=== PATIENT | female | born 1970 | race Caucasian/White ===

== ENCOUNTER 2016-07-10 23:44 | Inpatient (IN) | payer BC ==
[~2016-07-10] VITALS: Ht 167.6 cm; Wt 86.6 kg
[~2016-07-10 23:44] MED LIST: HYDR-548 PO
[2016-07-10] MEDS ORDERED: ASPIRIN 81 MG TAB.CHEW ONE (23:56)
[2016-07-11] MEDS ORDERED: MORPHINE SULFATE INJ 4 MG/ML DISP.SYRIN ONE
[2016-07-11] MEDS ORDERED: ASPIRIN 81 MG TAB.CHEW PO ONE
[2016-07-11] MEDS ORDERED: ONDANSETRON HCL/PF 4 MG/2 ML VIAL ONE (00:01)
[2016-07-11] MEDS ORDERED: IV NS 0.9% 1,000 ML ONE (00:04)
[2016-07-11] MEDS ORDERED: IV SET PRIMARY 1 EA INFUS.SET MC ONE (00:04)
[2016-07-11 00:09] LABS: BASOPHILS % (AUTO) 0.4 % (0.0-2.0); DIFF TOTAL % 100 %; EOSINOPHILS # (AUTO) 0.1 /CMM (0.0-0.7); EOSINOPHILS % (AUTO) 1.3 % (0.0-6.0); HEMATOCRIT 40 % (33-45); HEMOGLOBIN 13.1 g/dL (11.5-14.8); LYMPHOCYTES # (AUTO) 1.4 /CMM (0.8-4.8); LYMPHOCYTES % (AUTO) 31.9 % (20.0-44.0); MEAN CORPUSCULAR HEMOGLOBIN 28 PG (26.0-33.0); MEAN CORPUSCULAR HGB CONC 33 g/dl (31.0-36.0); MEAN CORPUSCULAR VOLUME 85 fL (82-100); MONOCYTES # (AUTO) 0.3 /CMM (0.1-1.30); MONOCYTES % (AUTO) 7.2 % (2.0-12.0); NEUTROPHILS # (AUTO) 2.6 /CMM (1.8-8.9); NEUTROPHILS % (AUTO) 59.2 % (43.0-81.0); PLATELET COUNT (AUTO) 250 /CMM (150-450); RED BLOOD CELL COUNT(AUTO) 4.67 MIL/uL (4.0-5.2); WHITE BLOOD COUNT (AUTO) 4.4 K/uL (4.3-11.0)
[2016-07-11 00:18] LABS: ANION GAP 14 (5-14); CARBON DIOXIDE 26 mmol/L (21-32); CHLORIDE 105 mmol/L (98-107); CREATININE 0.7 mg/dL (0.6-1.3); GFR 90 mL/min (>60); GLUCOSE 112 mg/dL (74-106); POTASSIUM 4.1 mmol/L (3.5-5.1); SODIUM SERUM 141 mmol/L (136-145); UREA NITROGEN, BLOOD 12 mg/dL (7-18)
[2016-07-11] MEDS ORDERED: IV NS 0.9% 250 ML IV ONE (00:22)
[2016-07-11] MEDS ORDERED: IOHEXOL-350 100 ML VIAL IV ONE (00:22)
[2016-07-11 00:24] LABS: ALBUMIN 3.6 g/dL (3.4-5.0); BILIRUBIN,DIRECT 0.1 mg/dL (0.0-0.2); BILIRUBIN,TOTAL 0.3 mg/dL (0.2-1.0); INDIRECT BILIRUBIN 0.2 mg/dL (0.0-1.1); TOTAL PROTEIN, SERUM 7.7 g/dL (6.4-8.2)
[2016-07-11 00:25] LABS: INR 0.9 (0.87-1.13); PROTHROMBIN TIME 9.7 SECS (9.5-12.7)
[2016-07-11 00:28] LABS: TROPONIN I < 0.017 ng/mL (0.00-0.056)
[2016-07-11] MEDS ORDERED: ONDANSETRON HCL/PF 4 MG/2 ML VIAL IV ONE (00:30)
[2016-07-11] MEDS ORDERED: IV NS 0.9% 1,000 ML BAG IV ONE (00:30)
[2016-07-11] MEDS ORDERED: MORPHINE SULFATE INJ 2 MG/ML DISP.SYRIN IV ONE (00:30)
[2016-07-11] MEDS ORDERED: FAMOTIDINE/PF INJ 20 MG/2 ML VIAL IV ONE ×2 (01:28→02:00)
[2016-07-11] MEDS ORDERED: METOCLOPRAMIDE HCL 10 MG/2 ML VIAL ONE (01:28)
[2016-07-11] MEDS ORDERED: METOCLOPRAMIDE HCL 10 MG/2 ML VIAL IV ONE (02:00)
[2016-07-11] MEDS ORDERED: CARVEDILOL 3.125 MG TABLET PO ONE (02:30)
[2016-07-11] MEDS ORDERED: NITROGLYCERIN 0.4 MG/TAB BOTTLE SL PRN (02:30)
[2016-07-11] MEDS ORDERED: HYDROCODONE/APAP 10/325MG 1 EA TABLET PO PRN (02:30)
[2016-07-11] MEDS ORDERED: MORPHINE SULFATE INJ 2 MG/ML DISP.SYRIN IV PRN ×2 (02:30)
[2016-07-11] MEDS ORDERED: ENOXAPARIN SODIUM 40 MG/0.4 ML DISP.SYRIN SQ SCH (02:30)
[2016-07-11 03:00] VITALS: BP 108/71
[2016-07-11 03:30] VITALS: BP 108/71
[2016-07-11] MEDS ORDERED: CARVEDILOL 3.125 MG TABLET ONE (03:36)
[2016-07-11 07:32] VITALS: BP 118/64
[2016-07-11] MEDS ORDERED: CLOPIDOGREL BISULFATE 75 MG TABLET PO SCH (09:00)
[2016-07-11] MEDS ORDERED: ASPIRIN 81 MG TAB.CHEW PO SCH (09:00)
[2016-07-11] MEDS ORDERED: NAPR500T PO (09:13)
[2016-07-11] MEDS ORDERED: SIMVASTATIN 20 MG TABLET PO SCH (22:00)
== END 2016-07-11 10:20 | disposition home or self-care (01) | DRG 203 ==
LOC: ER 23:47 → TELE 07-11 02:24 → MED 07-11 10:18
PROVIDERS: ADMIT Internal Medicine; ATTEND Internal Medicine
DX: M94.0 Chondrocostal junction syndrome [Tietze] (principal); Z85.3 Personal history of malignant neoplasm of breast; Z87.891 Personal history of nicotine dependence; Z90.12 Acquired absence of left breast and nipple; Z92.21 Personal history of antineoplastic chemotherapy; Z90.49 Acquired absence of other specified parts of digestive tract
CPT/HCPCS: 36415; 71010-TC; 80048-TC; 80076-TC; 83690-TC; 84484-TC; 85025-TC; 85610-TC; 87081-TC; A4606; J2270; J2405; J2765; J3490; J7030; J7050; Q9967; Z7610

== ENCOUNTER 2017-01-02 13:37 | Emergency (ER) | payer MEDICAID ==
[~2017-01-02] VITALS: Ht 167.6 cm; Wt 68.0 kg
[~2017-01-02 13:37] MED LIST changes: +NAPR500T PO
--- NOTE | 2017-01-02 13:58 | NUR ---
PRESENTS SELF TO ED FOR VAGIANL BLEEDING X 2 DAYS. PATIENT ALSO REPORTED SHARP PAIN ON LOWER ABDOMEN, 7/10. PATIENT DENIES NAUSEA AND VOMITTING,. SKIN IS WARM TO TOUCH AND NON DIAPHORETIC. PATIENT IS AFEBRILE. VSS
--- NOTE | 2017-01-02 14:00 | NUR ---
iv line started blood drawn and sent to lab.
--- NOTE | 2017-01-02 14:20 | NUR ---
dr reeves at bedside for eval.
[2017-01-02] MEDS ORDERED: ONDANSETRON HCL/PF 4 MG/2 ML VIAL ONE (14:29)
[2017-01-02] MEDS ORDERED: IV NS 0.9% 1,000 ML BAG IV ONE (14:30)
[2017-01-02] MEDS ORDERED: ONDANSETRON HCL/PF - ER 4 MG/2 ML VIAL IV ONE (14:30)
[2017-01-02] MEDS ORDERED: MORPHINE SULFATE INJ 2 MG/ML DISP.SYRIN IV ONE (14:30)
[2017-01-02] MEDS ORDERED: MORPHINE SULFATE INJ 4 MG/ML DISP.SYRIN ONE (14:30)
[2017-01-02 14:54] LABS: BASOPHILS % (AUTO) 0.4 % (0.0-2.0); EOSINOPHILS % (AUTO) 0.3 % (0.0-6.0); HEMATOCRIT 39 % (33-45); HEMOGLOBIN 13.2 g/dL (11.5-14.8); LYMPHOCYTES # (AUTO) 1.9 /CMM (0.8-4.8); LYMPHOCYTES % (AUTO) 31.9 % (20.0-44.0); MEAN CORPUSCULAR HEMOGLOBIN 29 PG (26.0-33.0); MEAN CORPUSCULAR HGB CONC 34 g/dl (31.0-36.0); MEAN CORPUSCULAR VOLUME 87 fL (82-100); MONOCYTES # (AUTO) 0.3 /CMM (0.1-1.30); MONOCYTES % (AUTO) 4.4 % (2.0-12.0); NEUTROPHILS # (AUTO) 3.8 /CMM (1.8-8.9); PLATELET COUNT (AUTO) 234 /CMM (150-450); RDW COEFFICIENT OF VARIATION 12.7 (11.5-15.0); RED BLOOD CELL COUNT(AUTO) 4.52 MIL/uL (4.0-5.2)
[2017-01-02 15:18] LABS: INR 0.94 (0.87-1.13)
[2017-01-02 15:21] LABS: CALCIUM, SERUM 8.8 mg/dL (8.5-10.1); CREATININE 0.7 mg/dL (0.6-1.3); POTASSIUM 3.2 mmol/L (3.5-5.1)
[2017-01-02 15:34] LABS: ALBUMIN 3.9 g/dL (3.4-5.0); BILIRUBIN,TOTAL 0.5 mg/dL (0.2-1.0); TOTAL PROTEIN, SERUM 7.8 g/dL (6.4-8.2)
--- NOTE | 2017-01-02 15:55 | NUR ---
U/S TECH AT BEDSIDE FOR PELVIC ULTRASOUND.
[2017-01-02 16:37] LABS: APPEARANCE,URINE Slightly Cloudy (CLEAR); BILIRUBIN,URINE SMALL (NEGATIVE); BLOOD, URINE Large Ery/uL (NEGATIVE); COLOR,URINE Yellow (YELLOW); KETONES,URINE Negative (NEGATIVE); LEUKOCYTE ESTERASE ,URINE Negative (NEGATIVE); NITRITE, URINE Negative (NEGATIVE); PH,URINE 5.5 (5.0-8.0); PROTEIN,URINE Negative (NEGATIVE); UGLUCOSE Negative (NEGATIVE); UROBILINOGEN,URINE 0.2 EU/dL (0.2)
[2017-01-02 16:51] LABS: BACTERIA,URINE Rare /HPF (None Seen); SQUAMOUS EPITHELIAL CELL,UR Few /HPF (None Seen); WBC,URINE 0-2 /HPF (0-3)
[2017-01-02 17:15] VITALS: BP 128/74
--- NOTE | 2017-01-02 17:15 | NUR ---
Patient discharged to home in stable condition. Written and verbal after care instructions given. Patient verbalizes understanding of instruction.IV removed. Catheter intact and site benign. Pressure and 4x4 applied to site. No bleeding noted.
== END 2017-01-02 17:16 | disposition home or self-care (01) ==
LOC: ER 13:43
DX: N93.9 Abnormal uterine and vaginal bleeding, unspecified (principal); Z98.890 Other specified postprocedural states; F17.200 Nicotine dependence, unspecified, uncomplicated
CPT/HCPCS: 36415; 76856-TC; 80053-TC; 81000-TC; 84702-TC; 85025-TC; 85610-TC; 85730-TC; A4606; J2270; J2405; J7030; Z7610

== ENCOUNTER 2018-07-04 20:20 | Emergency (ER) | payer MEDICAID ==
[~2018-07-04] VITALS: Ht 167.6 cm; Wt 80.7 kg
[~2018-07-04 20:20] MED LIST changes: +HYDR-4354 PO; -HYDR-548 PO; +NAPR-1164 PO; -NAPR500T PO
--- NOTE | 2018-07-04 20:34 | NUR ---
PT PRESENTED TO THE ER WITH A C/O L SIDED CP THAT RADIATES TO THE BACK. PT IS ALSO C/O EPIGASTRIC PAIN AND URINARY FREQUENCY. PT IS ON THE MONITOR AND CONITNUOUS PULSE OX.
[2018-07-04 20:56] LABS: BASOPHILS % (AUTO) 0.5 % (0.0-2.0); EOSINOPHILS % (AUTO) 0.8 % (0.0-6.0); HEMATOCRIT 37 % (33-45); HEMOGLOBIN 12.7 g/dL (11.5-14.8); LYMPHOCYTES # (AUTO) 2.4 /CMM (0.8-4.8); LYMPHOCYTES % (AUTO) 40.4 % (20.0-44.0); MEAN CORPUSCULAR HGB CONC 34 g/dl (31.0-36.0); MEAN CORPUSCULAR VOLUME 88 fL (82-100); MONOCYTES # (AUTO) 0.4 /CMM (0.1-1.30); MONOCYTES % (AUTO) 6.2 % (2.0-12.0); NEUTROPHILS # (AUTO) 3.1 /CMM (1.8-8.9); NEUTROPHILS % (AUTO) 52.1 % (43.0-81.0); PLATELET COUNT (AUTO) 230 /CMM (150-450); RED BLOOD CELL COUNT(AUTO) 4.26 MIL/uL (4.0-5.2); WHITE BLOOD COUNT (AUTO) 5.9 K/uL (4.3-11.0)
--- NOTE | 2018-07-04 21:05 | NUR ---
PT APPEARS TO BE RESTING COMFORTABLY WITH NO S/S OF PAIN OR DISTRESS.
[2018-07-04 21:09] LABS: APPEARANCE,URINE Clear (CLEAR); BILIRUBIN,URINE Negative (NEGATIVE); BLOOD, URINE Negative Ery/uL (NEGATIVE); COLOR,URINE Yellow (YELLOW); KETONES,URINE 15 (NEGATIVE); LEUKOCYTE ESTERASE ,URINE Negative (NEGATIVE); NITRITE, URINE Negative (NEGATIVE); PROTEIN,URINE Negative (NEGATIVE); UGLUCOSE Negative (NEGATIVE); UROBILINOGEN,URINE 0.2 EU/dL (0.2)
[2018-07-04 21:12] LABS: CALCIUM, SERUM 9.4 mg/dL (8.5-10.1); CARBON DIOXIDE 25 mmol/L (21-32); CHLORIDE 106 mmol/L (98-107); CREATININE 0.8 mg/dL (0.6-1.3); GLUCOSE 118 mg/dL (74-106); POTASSIUM 3.5 mmol/L (3.5-5.1); SODIUM SERUM 141 mmol/L (136-145); UREA NITROGEN, BLOOD 13 mg/dL (7-18)
[2018-07-04 21:22] LABS: BACTERIA,URINE None seen /HPF (None Seen); RBC,URINE 0-2 /HPF (0-2); SQUAMOUS EPITHELIAL CELL,UR Few /HPF (None Seen); WBC,URINE 0-2 /HPF (0-3)
[2018-07-04] MEDS ORDERED: ACETAMINOPHEN ES 500 MG TABLET ONE (21:46)
--- NOTE | 2018-07-04 21:56 | NUR ---
Patient discharged to home in stable condition. Written and verbal after care instructions given. Patient verbalizes understanding of instruction. PT REC'D A COPY OF ALL LABS, IMAGING FINDINGS AND EKG. PT AMBULATED OUT WITH A STEADY GAIT. VSS. PT'S DAUGHTER IS DRIVING PT HOME.
[2018-07-04 21:58] VITALS: BP 142/85
== END 2018-07-04 21:59 | disposition home or self-care (01) ==
LOC: ER 20:23
DX: R07.89 Other chest pain (principal); I10 Essential (primary) hypertension; F17.200 Nicotine dependence, unspecified, uncomplicated; Z85.3 Personal history of malignant neoplasm of breast; Z79.899 Other long term (current) drug therapy
CPT/HCPCS: 36415; 71045-TC; 80048-TC; 81000-TC; 84484-TC; 84702-TC; 85025-TC; 85730-TC

== ENCOUNTER 2018-11-15 19:39 | Emergency (ER) | payer MEDICAID ==
[~2018-11-15] VITALS: Ht 162.6 cm; Wt 82.1 kg
[2018-11-15 19:44] VITALS: BP 147/89
== END 2018-11-15 20:25 | disposition home or self-care (01) ==
LOC: ER 19:43
DX: K11.5 Sialolithiasis (principal); F17.200 Nicotine dependence, unspecified, uncomplicated; I10 Essential (primary) hypertension; Z85.3 Personal history of malignant neoplasm of breast; Z90.12 Acquired absence of left breast and nipple
CPT/HCPCS: Z7502

== ENCOUNTER 2019-01-19 23:06 | Emergency (ER) | payer MEDICAID ==
[~2019-01-19] VITALS: Ht 162.6 cm; Wt 80.7 kg
--- NOTE | 2019-01-19 23:45 | NUR ---
to bed 4 ambulatory c/o dizziness and fatigue x1 day. pt aaox4 no acute distress noted, resp even and unlabored. place pt on cardiac monitoring, continuous pox. er md at [facility] to eval pt with orders recieved. will carry out orders.
[2019-01-19] MEDS ORDERED: ONDANSETRON HCL/PF 4 MG/2 ML VIAL ONE (23:59)
[2019-01-20] MEDS ORDERED: IV NS 0.9% 1,000 ML BAG IV ONE
[2019-01-20] MEDS ORDERED: ONDANSETRON HCL/PF 4 MG/2 ML VIAL IVP ONE
[2019-01-20 00:09] LABS: BASOPHILS % (AUTO) 0.8 % (0.0-2.0); HEMATOCRIT 38 % (33-45); HEMOGLOBIN 12.9 g/dL (11.5-14.8); LYMPHOCYTES # (AUTO) 2.2 /CMM (0.8-4.8); LYMPHOCYTES % (AUTO) 45.3 % (20.0-44.0); MEAN CORPUSCULAR HGB CONC 34 g/dl (31.0-36.0); MEAN CORPUSCULAR VOLUME 89 fL (82-100); MONOCYTES # (AUTO) 0.3 /CMM (0.1-1.30); MONOCYTES % (AUTO) 6.7 % (2.0-12.0); NEUTROPHILS # (AUTO) 2.3 /CMM (1.8-8.9); NEUTROPHILS % (AUTO) 46.2 % (43.0-81.0); PLATELET COUNT (AUTO) 246 /CMM (150-450); RED BLOOD CELL COUNT(AUTO) 4.24 MIL/uL (4.0-5.2); WHITE BLOOD COUNT (AUTO) 4.9 K/uL (4.3-11.0)
[2019-01-20 00:17] LABS: CALCIUM, SERUM 9.5 mg/dL (8.5-10.1); CARBON DIOXIDE 30 mmol/L (21-32); CHLORIDE 103 mmol/L (98-107); CREATININE 0.8 mg/dL (0.6-1.3); GLUCOSE 116 mg/dL (74-106); POTASSIUM 3.9 mmol/L (3.5-5.1); SODIUM SERUM 141 mmol/L (136-145); UREA NITROGEN, BLOOD 11 mg/dL (7-18)
[2019-01-20 00:23] LABS: ALANINE AMINOTRANSFERASE 223 U/L (12-78); ALBUMIN 3.6 g/dL (3.4-5.0); ALKALINE PHOSPHATASE 92 U/L (46-116); ASPARTATE AMINOTRANSFERASE 117 U/L (15-37); BILIRUBIN,DIRECT 0.1 mg/dL (0.0-0.2); BILIRUBIN,TOTAL 0.2 mg/dL (0.2-1.0); TOTAL PROTEIN, SERUM 7.2 g/dL (6.4-8.2)
[2019-01-20] MEDS ORDERED: MECLIZINE HCL 12.5 MG TABLET PO ONE (01:00)
[2019-01-20] MEDS ORDERED: MECLIZINE HCL 12.5 MG TABLET ONE (01:36)
--- NOTE | 2019-01-20 01:42 | NUR ---
IV removed. Catheter intact and site benign. Pressure and 4x4 applied to site. No bleeding noted. Patient discharged to home in stable condition. Written and verbal after care instructions given. Patient verbalizes understanding of instruction. ambulatory with a steady gait noted. pt aaox4 no acute distress noted, resp even and unlabored. pt daughter at [facility] to take pt home.
[2019-01-20 01:47] VITALS: BP 134/69
== END 2019-01-20 01:50 | disposition home or self-care (01) ==
LOC: ER 23:09
DX: R42 Dizziness and giddiness (principal); I10 Essential (primary) hypertension; F17.200 Nicotine dependence, unspecified, uncomplicated; Z85.3 Personal history of malignant neoplasm of breast; Z98.890 Other specified postprocedural states
CPT/HCPCS: 36415; 70450; 71045; 80048; 80076; 84484; 85025; 85730; 93005; 96361; 96374; 99284; J2405; J7030; J8597

== ENCOUNTER 2019-02-02 12:58 | Emergency (ER) | payer MEDICAID ==
[~2019-02-02] VITALS: Ht 165.1 cm; Wt 88.0 kg
--- NOTE | 2019-02-02 13:15 | NUR ---
DIFFUSE ABD PAIN W/ BRIGHT RED BLOOD IN STOOL SINCE YEST PER PT. PATIENT A/OX4, NO DISTRESS NOTED, NEEDS ATTENDED. CHANGED INTO GOWN, ATTACHED TO THE OPERATER.
[2019-02-02] MEDS ORDERED: IV NS 0.9% 1,000 ML BAG IV ONE (13:30)
[2019-02-02] MEDS ORDERED: ONDANSETRON HCL/PF 4 MG/2 ML VIAL ONE (13:54)
[2019-02-02] MEDS ORDERED: MORPHINE SULFATE INJ 4 MG/ML DISP.SYRIN ONE (13:54)
[2019-02-02 13:57] LABS: BASOPHILS % (AUTO) 0.9 % (0.0-2.0); EOSINOPHILS % (AUTO) 0.4 % (0.0-6.0); HEMATOCRIT 40 % (33-45); HEMOGLOBIN 13.6 g/dL (11.5-14.8); LYMPHOCYTES # (AUTO) 1.5 /CMM (0.8-4.8); MEAN CORPUSCULAR HGB CONC 34 g/dl (31.0-36.0); MEAN CORPUSCULAR VOLUME 89 fL (82-100); MONOCYTES # (AUTO) 0.3 /CMM (0.1-1.30); MONOCYTES % (AUTO) 6.6 % (2.0-12.0); NEUTROPHILS # (AUTO) 3.1 /CMM (1.8-8.9); NEUTROPHILS % (AUTO) 61.1 % (43.0-81.0); PLATELET COUNT (AUTO) 233 /CMM (150-450); RED BLOOD CELL COUNT(AUTO) 4.48 MIL/uL (4.0-5.2)
[2019-02-02] MEDS ORDERED: ONDANSETRON HCL/PF 4 MG/2 ML VIAL IVP ONE (14:00)
[2019-02-02] MEDS ORDERED: MORPHINE SULFATE INJ 2 MG/ML DISP.SYRIN IV ONE (14:00)
[2019-02-02 14:04] LABS: CALCIUM, SERUM 9.2 mg/dL (8.5-10.1); CREATININE 0.8 mg/dL (0.6-1.3); POTASSIUM 3.6 mmol/L (3.5-5.1)
[2019-02-02 14:09] LABS: ALBUMIN 3.8 g/dL (3.4-5.0); BILIRUBIN,DIRECT 0.2 mg/dL (0.0-0.2); BILIRUBIN,TOTAL 0.4 mg/dL (0.2-1.0); TOTAL PROTEIN, SERUM 7.4 g/dL (6.4-8.2)
--- NOTE | 2019-02-02 14:20 | NUR ---
PATIENT ASSISTED TO RESTROOM
[2019-02-02] MEDS ORDERED: IOHEXOL-300 100 ML VIAL IV ONE (14:22)
--- NOTE | 2019-02-02 14:26 | NUR ---
PATIENT TAKEN TO CT.
[2019-02-02 14:27] LABS: APPEARANCE,URINE Clear (CLEAR); BILIRUBIN,URINE Negative (NEGATIVE); BLOOD, URINE Negative Ery/uL (NEGATIVE); COLOR,URINE Yellow (YELLOW); KETONES,URINE Negative (NEGATIVE); LEUKOCYTE ESTERASE ,URINE Small (NEGATIVE); NITRITE, URINE Negative (NEGATIVE); PH,URINE 6.5 (5.0-8.0); PROTEIN,URINE Negative (NEGATIVE); UGLUCOSE Negative (NEGATIVE); UROBILINOGEN,URINE 0.2 EU/dL (0.2)
[2019-02-02 14:44] LABS: BACTERIA,URINE 2+ /HPF (None Seen); RBC,URINE 0-2 /HPF (0-2); SQUAMOUS EPITHELIAL CELL,UR Few /HPF (None Seen); WBC,URINE 21-50 /HPF (0-3)
--- NOTE | 2019-02-02 15:34 | NUR ---
CALLED DR VEGA FOR A DR TO [phone]
[2019-02-02 16:09] VITALS: BP 162/86
--- NOTE | 2019-02-02 16:09 | NUR ---
IV removed. Catheter intact and site benign. Pressure and 4x4 applied to site. No bleeding noted.Patient discharged to home in stable condition. Written and verbal after care instructions given. Patient verbalizes understanding of instruction.
== END 2019-02-02 16:10 | disposition home or self-care (01) ==
LOC: ER 12:59
DX: R10.84 Generalized abdominal pain (principal); R19.7 Diarrhea, unspecified; K76.0 Fatty (change of) liver, not elsewhere classified; R74.0 Nonspecific elevation of levels of transaminase and lactic acid dehydrogenase [LDH]; K76.89 Other specified diseases of liver; I10 Essential (primary) hypertension; F17.200 Nicotine dependence, unspecified, uncomplicated; Z85.3 Personal history of malignant neoplasm of breast; Z90.12 Acquired absence of left breast and nipple; Z90.49 Acquired absence of other specified parts of digestive tract
CPT/HCPCS: 36415; 74176; 74177; 80048; 80076; 81001; 83690; 84703; 85025; 85730; 87086; 96361; 96374; 96375; 99284; J2270; J2405; J7030; Q9967; 81000-TC

== ENCOUNTER 2019-06-19 18:43 | Emergency (ER) | payer MEDICAID ==
[~2019-06-19] VITALS: Ht 162.6 cm; Wt 86.6 kg
[2019-06-19] MEDS ORDERED: TRAMADOL HCL 50 MG TABLET ONE (20:05)
--- NOTE | 2019-06-19 20:20 | NUR ---
LACERATION ON RIGHT THUMB S/P CUT WITH "MANDLIN" SLICE EQUIPMENT
[2019-06-19] MEDS ORDERED: LIDOCAINE /MPF 1% VIAL 5 ML VIAL ONE (20:21)
[2019-06-19] MEDS ORDERED: TRAMADOL HCL 50 MG TABLET PO ONE (20:30)
[2019-06-19] MEDS ORDERED: GELATIN SPONGE,ABSORBABLE 1 SPONGE SPONGE TP ONE ×3 (20:46→21:32)
--- NOTE | 2019-06-19 22:04 | NUR ---
Patient discharged to home in stable condition. Written and verbal after care instructions given. Patient verbalizes understanding of instruction and RX. PT ambulatory with a steady gait.
[2019-06-19 22:05] VITALS: BP 132/76
== END 2019-06-19 22:06 | disposition home or self-care (01) ==
LOC: ER 18:50
DX: S61.011A Laceration without foreign body of right thumb without damage to nail, initial encounter (principal); I10 Essential (primary) hypertension; F17.200 Nicotine dependence, unspecified, uncomplicated; Z98.890 Other specified postprocedural states; Z85.3 Personal history of malignant neoplasm of breast; Z79.899 Other long term (current) drug therapy; W26.0XXA Contact with knife, initial encounter; Y93.89 Activity, other specified; Y92.89 Other specified places as the place of occurrence of the external cause; Y99.8 Other external cause status
CPT/HCPCS: 99283; A6403; J3490

== ENCOUNTER 2020-04-08 01:03 | Emergency (ER) | payer MEDICAID ==
[~2020-04-08] VITALS: Ht 165.1 cm; Wt 86.2 kg
--- NOTE | 2020-04-08 01:04 | NUR ---
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 CURRENTLY W/ C/O BACK AND JAW PAIN. 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
--- NOTE | 2020-04-08 01:23 | NUR ---
AUDIO PRODUCTION INSTRUCTOR AT BEDSIDE FOR BLOOD WORK.
[2020-04-08 01:42] LABS: BASOPHILS # (AUTO) 0.1 /CMM (0.0-0.2); BASOPHILS % (AUTO) 1.2 % (0.0-2.0); EOSINOPHILS % (AUTO) 0.2 % (0.0-6.0); HEMATOCRIT 37 % (33-45); HEMOGLOBIN 12.7 g/dL (11.5-14.8); LYMPHOCYTES % (AUTO) 16.6 % (20.0-44.0); MEAN CORPUSCULAR HGB CONC 35 g/dl (31.0-36.0); MEAN CORPUSCULAR VOLUME 99 fL (82-100); MONOCYTES # (AUTO) 0.6 /CMM (0.1-1.30); MONOCYTES % (AUTO) 9.3 % (2.0-12.0); NEUTROPHILS # (AUTO) 4.3 /CMM (1.8-8.9); NEUTROPHILS % (AUTO) 72.7 % (43.0-81.0); PLATELET COUNT (AUTO) 336 /CMM (150-450); RED BLOOD CELL COUNT(AUTO) 3.74 MIL/uL (4.0-5.2)
--- NOTE | 2020-04-08 01:45 | NUR ---
X RAY AT BED SIDE
[2020-04-08 01:50] LABS: CALCIUM, SERUM 9.2 mg/dL (8.5-10.1); CARBON DIOXIDE 28 mmol/L (21-32); CHLORIDE 103 mmol/L (98-107); CREATININE 0.7 mg/dL (0.6-1.3); GLUCOSE 130 mg/dL (74-106); POTASSIUM 3.8 mmol/L (3.5-5.1); SODIUM SERUM 133 mmol/L (136-145); UREA NITROGEN, BLOOD 17 mg/dL (7-18)
--- NOTE | 2020-04-08 03:38 | NUR ---
Patient discharged to home in stable condition. Written and verbal after care instructions given. Patient verbalizes understanding of instruction. IV removed. Catheter intact and site benign. Pressure and 4x4 applied to site. No bleeding noted.
[2020-04-08 03:40] VITALS: BP 140/75
== END 2020-04-08 03:41 | disposition home or self-care (01) ==
LOC: ER 01:04
DX: R07.89 Other chest pain (principal); I10 Essential (primary) hypertension; Z90.12 Acquired absence of left breast and nipple; Z85.3 Personal history of malignant neoplasm of breast; Z85.830 Personal history of malignant neoplasm of bone; Z79.899 Other long term (current) drug therapy
CPT/HCPCS: 36415; 71045-TC; 80048-TC; 84484-TC; 85025-TC